=== PATIENT | female | born 2000 | race African-American/Black ===

== ENCOUNTER 2018-06-03 15:50 | Emergency (ER) | payer SELFPAY ==
[~2018-06-03] VITALS: Ht 167.6 cm; Wt 127.0 kg
--- NOTE | 2018-06-03 16:06 | NUR ---
PT WHEELED TO ED BED 06 FROM THE [facility]. [id number] + PD FROM [facility] STREET, PT WAS SEEN RUNNING AROUND IN THE TRAFFIC, TRYING TO OPEN CARS, ACTING BIZARE. PT PLACED ON CONT CARDIAC AND POX MONITORING. ALL NEEDS ARE ATTENDED, WILL CONT TO MONITOR
[2018-06-03] MEDS ORDERED: OLANZAPINE 10 MG VIAL IM ONE ×2 (16:10→16:30)
[2018-06-03] MEDS ORDERED: LORAZEPAM INJ 2 MG/ML VIAL ONE ×2 (16:10→16:52)
--- NOTE | 2018-06-03 16:23 | NUR ---
URINE SAMPLE OBTAINED VIA IN AND OUT CATH. SAMPLE SENT TO LABS.
[2018-06-03] MEDS ORDERED: LORAZEPAM INJ 2 MG/ML VIAL IM ONE ×2 (16:30→17:00)
[2018-06-03 16:39] LABS: BASOPHILS # (AUTO) 0.1 /CMM (0.0-0.2); BASOPHILS % (AUTO) 0.7 % (0.0-2.0); EOSINOPHILS % (AUTO) 0.7 % (0.0-6.0); HEMATOCRIT 36 % (33-45); HEMOGLOBIN 12.7 g/dL (11.5-14.8); LYMPHOCYTES # (AUTO) 2.6 /CMM (0.8-4.8); LYMPHOCYTES % (AUTO) 29.6 % (20.0-44.0); MEAN CORPUSCULAR HEMOGLOBIN 32 PG (26.0-33.0); MEAN CORPUSCULAR HGB CONC 35 g/dl (31.0-36.0); MEAN CORPUSCULAR VOLUME 90 fL (82-100); MONOCYTES # (AUTO) 0.5 /CMM (0.1-1.30); MONOCYTES % (AUTO) 5.3 % (2.0-12.0); NEUTROPHILS # (AUTO) 5.4 /CMM (1.8-8.9); NEUTROPHILS % (AUTO) 63.7 % (43.0-81.0); PLATELET COUNT (AUTO) 327 /CMM (150-450); RDW COEFFICIENT OF VARIATION 12.7 (11.5-15.0); RED BLOOD CELL COUNT(AUTO) 4.01 MIL/uL (4.0-5.2); WHITE BLOOD COUNT (AUTO) 8.7 K/uL (4.3-11.0)
[2018-06-03 16:47] LABS: CALCIUM, SERUM 9.5 mg/dL (8.5-10.1); CARBON DIOXIDE 27 mmol/L (21-32); CHLORIDE 107 mmol/L (98-107); CREATININE 0.8 mg/dL (0.6-1.3); GLUCOSE 94 mg/dL (74-106); POTASSIUM 3.5 mmol/L (3.5-5.1); SODIUM SERUM 142 mmol/L (136-145); UREA NITROGEN, BLOOD 8 mg/dL (7-18)
[2018-06-03] MEDS ORDERED: diphenhydrAMINE HCL 50 MG/ML VIAL ONE (16:50)
[2018-06-03] MEDS ORDERED: HALOPERIDOL LACTATE INJ 5 MG/ML VIAL ONE (16:50)
[2018-06-03 16:52] LABS: ALANINE AMINOTRANSFERASE 22 U/L (12-78); ALBUMIN 3.3 g/dL (3.4-5.0); ALCOHOL, BLOOD < 3 mg/dL (0-0); ALKALINE PHOSPHATASE 70 U/L (46-116); ASPARTATE AMINOTRANSFERASE 21 U/L (15-37); BILIRUBIN,DIRECT 0.2 mg/dL (0.0-0.2); BILIRUBIN,TOTAL 0.6 mg/dL (0.2-1.0)
[2018-06-03 16:53] LABS: ACETAMINOPHEN < 2 ug/ml (10-30); SALICYLATE < 2.8 mg/dL (2.8-20.0)
[2018-06-03] MEDS ORDERED: diphenhydrAMINE HCL 50 MG/ML VIAL IM ONE (17:00)
[2018-06-03] MEDS ORDERED: HALOPERIDOL LACTATE INJ 5 MG/ML VIAL IM ONE (17:00)
--- NOTE | 2018-06-03 17:00 | NUR ---
PT NOTED TO BE EXTREMELY AGITATED- SCREAMING AND KICKING. AT BS WITH PA WITH NEW ORDERS FOR MEDS. ORDERS CARRIED OUT. WILL MONITOR.
[2018-06-03 17:47] LABS: APPEARANCE,URINE Clear (CLEAR); BILIRUBIN,URINE Negative (NEGATIVE); BLOOD, URINE Negative Ery/uL (NEGATIVE); COLOR,URINE Yellow (YELLOW); KETONES,URINE Negative (NEGATIVE); LEUKOCYTE ESTERASE ,URINE Negative (NEGATIVE); NITRITE, URINE Negative (NEGATIVE); PH,URINE 6.5 (5.0-8.0); PROTEIN,URINE Trace mg/dl (NEGATIVE); UGLUCOSE Negative (NEGATIVE); UROBILINOGEN,URINE 0.2 EU/dL (0.2)
--- NOTE | 2018-06-03 23:17 | NUR ---
PT RESTING IN GURNEY, NO SIGNS OF DISTRESS NOTED. PT VITAL SIGNS STABLE. BREATHS EQUAL AND UNLABORED. WILL CONT TO MONITOR PT.
--- NOTE | 2018-06-04 05:41 | NUR ---
Patient is awake and alert to self, day, and place. PT ambulatory with a steady gait. PT DENIES SI/HI. PT OK TO DISCHARGE HOME PER DR CUMMINGS. Patient discharged to home in stable condition. Written and verbal after care instructions given. Patient verbalizes understanding of instruction.
[2018-06-04 05:42] VITALS: BP 108/66
== END 2018-06-04 05:43 | disposition home or self-care (01) ==
LOC: ER 15:53
DX: F23 Brief psychotic disorder (principal); F15.159 Other stimulant abuse with stimulant-induced psychotic disorder, unspecified; F12.10 Cannabis abuse, uncomplicated; R45.1 Restlessness and agitation; E66.01 Morbid (severe) obesity due to excess calories; F32.9 Major depressive disorder, single episode, unspecified; Z68.42 Body mass index [BMI] 45.0-49.9, adult; Z59.0 Homelessness
CPT/HCPCS: 36415; 80048; 80076; 80305; 80329; 81001; 84703; 85025; 96372 ×5; 99284; A4606; G0480 ×2; J1200; J1630; J2060 ×2; J3490; Z7610; 81000-TC

== ENCOUNTER 2018-12-07 02:51 | Emergency (ER) | payer SELFPAY ==
[~2018-12-07] VITALS: Ht 157.5 cm; Wt 79.8 kg
--- NOTE | 2018-12-07 03:10 | NUR ---
MD AT BEDSIDE, PATIENT REFUSEING TO BE EXAMINED.
--- NOTE | 2018-12-07 03:10 | NUR ---
Note undone in EDM - 12/07/18 at 0555 by [facility] PT BR[place], WITH MARINE ENGINEERING TEACHER BY PT JORGE CUFFED TO BED BILATERALLY, SCREEMING, CURSING OUT AT ANY ONE TRYING TO TALK HER DOWN, SEEN BY ER MD CHACON ON JORGE, PT OUT OF CONTROL, PLACED ON ER BED 6, MEDS AND TX ENTERED, PT REFUSED MEDS INSISTING SHE'S OKAY, RISK AND BENEFIT EXPLAINED PT REFUSED ALL CARE AND INSISTED WANTS TO GO AMA, RESTRAINS RELEASED, PT WANTS TO GO SIGN MEDICAL FORMS REFUSING TX.
--- NOTE | 2018-12-07 03:22 | NUR ---
Female anesthesiologist attending accompanied female patient for Dr. St. Patient examined by MD, suddenly patient started screaming at MD calling him a "fucking ryann" and saying she was going to michelle. MD immediately backed away from to bed. Patient continued to scream incoherently. Security called by nursing staff.
[2018-12-07] MEDS ORDERED: LIDOCAINE 2% JEL 5 ML TUBE ONE (03:55)
[2018-12-07 03:56] LABS: BASOPHILS % (AUTO) 0.2 % (0.0-2.0); EOSINOPHILS % (AUTO) 0.3 % (0.0-6.0); HEMATOCRIT 36 % (33-45); LYMPHOCYTES # (AUTO) 2.6 /CMM (0.8-4.8); LYMPHOCYTES % (AUTO) 19.2 % (20.0-44.0); MEAN CORPUSCULAR HGB CONC 33 g/dl (31.0-36.0); MEAN CORPUSCULAR VOLUME 91 fL (82-100); MONOCYTES # (AUTO) 0.8 /CMM (0.1-1.30); MONOCYTES % (AUTO) 6.1 % (2.0-12.0); NEUTROPHILS # (AUTO) 10.1 /CMM (1.8-8.9); NEUTROPHILS % (AUTO) 74.2 % (43.0-81.0); PLATELET COUNT (AUTO) 290 /CMM (150-450); RED BLOOD CELL COUNT(AUTO) 3.99 MIL/uL (4.0-5.2); WHITE BLOOD COUNT (AUTO) 13.7 K/uL (4.3-11.0)
[2018-12-07] MEDS ORDERED: VALACYCLOVIR HCL 500 MG TABLET ONE (03:56)
[2018-12-07] MEDS ORDERED: LORAZEPAM 1 MG TABLET PO ONE (04:00)
[2018-12-07] MEDS ORDERED: VALACYCLOVIR HCL 500 MG TABLET PO ONE (04:00)
[2018-12-07] MEDS ORDERED: MORPHINE SULFATE INJ 2 MG/ML DISP.SYRIN IM ONE (04:00)
[2018-12-07] MEDS ORDERED: LIDOCAINE 2% JEL 5 ML TUBE MC ONE (04:00)
[2018-12-07 04:05] LABS: CALCIUM, SERUM 8.9 mg/dL (8.5-10.1); CREATININE 0.7 mg/dL (0.6-1.3); POTASSIUM 3.6 mmol/L (3.5-5.1)
[2018-12-07] MEDS ORDERED: oxyCODONE/APAP (5/325 MG) 1 UDTAB TABLET ONE (04:09)
[2018-12-07] MEDS ORDERED: oxyCODONE/APAP (5/325 MG) 1 UDTAB TABLET PO ONE (04:30)
--- NOTE | 2018-12-07 06:22 | NUR ---
Patient discharged to home in stable condition. Rx and tx provided. Written and verbal after care instructions given. Patient verbalizes understanding of instruction. stable condition, no pain vs stable.
[2018-12-07 06:24] VITALS: BP 112/68
== END 2018-12-07 06:26 | disposition home or self-care (01) ==
LOC: ER 02:55
DX: B00.9 Herpesviral infection, unspecified (principal); K64.5 Perianal venous thrombosis; Z59.0 Homelessness
CPT/HCPCS: 36415; 80048-TC; 84702-TC; 85025-TC